=== PATIENT | male | born 1975 | race Caucasian/White ===

== ENCOUNTER → 2016-06-02 | Outpatient (CLI) | payer SELFPAY ==
--- NOTE | 2016-06-02 15:00 | KCIC ---
PROCEDURE Coronary artery calcium HISTORY Calcium screening. Family history of CAD. Hypertension. Hypercholesterolemia. TECHNIQUE High resolution, computed tomography of the heart was performed with ECG gating and suspended respiration using the Siemens HeartView CT. No contrast material was administered. Post processing was performed on the 3-D computer workstation using diastolic phase images to measure the amount of coronary vascular calcium. Scoring was performed utilizing the Agatston Method. PQRS: One or more the following individualized dose reduction techniques were utilized for the study: 1. Automated exposure control. 2. Adjustment of the mA and/or kV according to patient size. 3. Use of iterative reconstruction technique. COMPARISON None. FINDINGS Thorax: Cardiac size is normal. No pericardial effusion. There is a 3 millimeter nodule in the right lower lobe, image 44. There is a 3 millimeter nodule in the lingula, image 23. There are 2 old right lateral rib fractures. Coronary arteries: CALCIUM IS PRESENT. TOTAL AGATSTON CALCIUM SCORE =1. Calcium is detected in the coronary circulation and confirms the presence of atherosclerotic plaque. A single focus of calcium is seen in the LAD. The presence of coronary calcium confirms the presence of atherosclerotic plaque. The greater the amount of coronary calcium, the greater the likelihood of occlusive coronary artery disease. However, there is not a one-to-one relationship, and findings may not be site specific. The total amount of calcium correlates best with the total amount of atherosclerotic plaque, although the true "plaque burden" may be underestimated by calcium score. MINIMAL coronary atherosclerosis is present. Individuals in this score range typically have mild to moderate luminal irregularity at coronary angiography. There is LOW RISK of cardiovascular event based on this test. IMPRESSION 1. Coronary atherosclerosis is present, limited amount. 2. Low risk of cardiovascular event. 3. There are two 3 millimeter nodules in the lungs. In a low risk patient per Fleischner Society criteria, no further follow up is necessarily required. RECOMMENDATIONS 1. Further evaluation and prevention strategies should be based on global assessment of cardiovascular risk factors in addition to the results of this test. 2. Reduction of modifiable cardiovascular risk factors should be considered. Additional supporting information concerning the findings and recommendation contained within this report can be found in the consensus statements on coronary vascular calcium published by the [employer] and [employer] 5 Conference (Circulation 1996; 94: 1449-4432; J Am Filiberto Cardiol 2000; 36: 326-340 and Circulation 2000; 101: 111-116). Electronically signed by: Cornelius Gomez MD (Jun 02, 2016 14:59:01)
== END | disposition home or self-care (01) ==
LOC: KCIC CT 13:03
PROVIDERS: ATTEND Family Medicine
DX: I10 Essential (primary) hypertension (principal); I25.10 Atherosclerotic heart disease of native coronary artery without angina pectoris; E78.00 Pure hypercholesterolemia, unspecified; Z82.49 Family history of ischemic heart disease and other diseases of the circulatory system; F17.200 Nicotine dependence, unspecified, uncomplicated
CPT/HCPCS: 75571

== ENCOUNTER → 2016-06-23 | Outpatient (CLI) | payer OTHER ==
[~2016-06-23] MED LIST: IOHEXOL 300 MG/ML 100ML VIAL. IV ONE
--- NOTE | 2016-06-23 15:58 | KCIC ---
PROCEDURE Chest CT with intravenous contrast. HISTORY Pulmonary nodules. Tobacco use. TECHNIQUE Computed tomographic images the chest were obtained following the administration of 90 cc Omnipaque 300 intravenous contrast. One or more of the following individualized dose reduction techniques were utilized for this examination: 1. Automated exposure control; 2. Adjustment of the mA and/or kV according to patient size; 3. Use of iterative reconstruction technique. COMPARISON 06/02/2016 FINDINGS There is a stable 3 mm nodule within the right lower lobe and 2 mm nodule within the lingula. No new nodule is seen. There is no infiltrate, effusion or pneumothorax. The heart is normal in size. No pathologically enlarged lymph node is seen. There are healed right rib fractures. There is fatty infiltration of the liver along the falciform ligament. There is a tiny hypodense lesion within the left hepatic lobe, too small to characterize and likely a cyst or hemangioma. The pancreas, spleen and visualized portions of the kidneys are unremarkable. There is left adrenal gland thickening without a discrete nodule. There is no suspicious osseous lesion. IMPRESSION 1. Stable 3 mm right lower lobe and 2 mm lingular pulmonary nodules. In accordance with Fleischner society criteria, follow-up can be performed in 1 year if this is a high risk patient and there is no standard follow-up if this is a low risk patient. 2. No acute pulmonary finding. 3. Tiny hypodense lesion within the left hepatic lobe, likely a cyst or hemangioma. In a low risk patient: <4mm- No follow up required. >4-6mm- 12 month follow up, if unchanged, no further follow up. >6-8mm- 6-12 month follow up, then at 18-24 months if no change. >8mm- 3, 9, 24 month follow up or consideration of PET/CT. In a high risk patient: <4mm- 12 month follow up, if unchanged then no further follow up. >4-6mm- 6-12 month follow up, then at 18-24 months if no change. >6-8mm- 3-6 month follow up, then at 9-12 months and 24 months if no change. >8mm- 3, 9, 24 month follow up or consideration of PET/CT. Electronically signed by: Barbara Mac (Jun 23, 2016 15:57:22)
== END | disposition home or self-care (01) ==
LOC: KCIC CT 15:22
PROVIDERS: ATTEND Family Medicine
DX: R91.1 Solitary pulmonary nodule (principal); Z72.0 Tobacco use
CPT/HCPCS: 71260; Q9967